=== PATIENT | female | born 1990 ===

== ENCOUNTER → 2019-07-23 | Outpatient (CLI) | payer BC ==
[~2019-07-23] MED LIST: ALBU90OI
== END | disposition home or self-care (01) ==
LOC: LAB SHORT 11:40 → LAB 11:40
DX: R39.15 Urgency of urination (principal)
CPT/HCPCS: 87077; 87086; 87186

== ENCOUNTER → 2019-09-06 | Outpatient (CLI) | payer BC | END | disposition home or self-care (01) | LOC: LAB SHORT 14:00 → LAB 14:00 | DX: R39.15 Urgency of urination (principal) | CPT/HCPCS: 87077; 87086; 87147; 87186 ==